=== PATIENT | male | born 1985 | race Caucasian/White ===

== ENCOUNTER 2020-10-14 09:25 | Emergency (ER) | payer OTHER ==
[2020-10-14 10:56] LABS: BASOPHIL 0.8 % (0-2); EOSINOPHIL 1.5 % (0-5); HGB 15.9 g/dl (13.2-18.0); LYMPHOCYTE 25.4 % (15-48); MCH 31.1 pg (25.0-31.0); MCHC 35.3 g/dL (32.0-36.0); MCV 88.1 fL (78.0-100.0); MONOCYTE 7.7 % (0-12); MPV 10.7 fL (6.0-9.5); NEUTROPHIL 63.6 % (41-80); NRBC 0; PLT 174 K/uL (150-400); RBC 5.11 M/uL (4.70-6.00); RDW 11.9 % (11.5-14.0); WBC 8.7 K/uL (4.0-10.5)
[2020-10-14 11:22] LABS: ALBUMIN 4.1 g/dL (3.4-5.0); BILIRUBIN - TOTAL 0.6 mg/dL (0.2-1.0); CREATININE 1.08 mg/dL (0.67-1.17); GLOBULIN (CALCULATION) 3.6 g/dL; POTASSIUM 3.8 mmol/L (3.5-5.1); TOTAL PROTEIN 7.7 g/dL (6.4-8.2)
== END 2020-10-14 11:47 | disposition home or self-care (01) ==
LOC: FER 09:25
PROVIDERS: Emergency Medicine
DX: R07.89 Other chest pain (principal)
CPT/HCPCS: 36415; 71045; 80053; 84484; 85025; 93005